=== PATIENT | male | born 1995 | race Caucasian/White ===

== ENCOUNTER → 2020-03-16 | Outpatient (CLI) | payer OTHER ==
[~2020-03-16] MED LIST: ENDOCET 5-3251 EACH PO
== END ==
LOC: KOH-I 09:45
DX: S62.002D Unspecified fracture of navicular [scaphoid] bone of left wrist, subsequent encounter for fracture with routine healing (principal); M25.832 Other specified joint disorders, left wrist; X58.XXXD Exposure to other specified factors, subsequent encounter
CPT/HCPCS: 73200

== ENCOUNTER → 2020-04-14 | Day surgery (SDC) | payer OTHER ==
[2020-04-14 10:43] LABS: HEMOGLOBIN 15.4 gm/dl (14.0-17.5); RED BLOOD COUNT 5.3 M/UL (4.20-5.50); WHITE BLOOD COUNT 6.4 K/UL (4.5-11.0)
[2020-04-14 11:16] LABS: BUN/CREATININE RATIO 19 (0-10)
== END | disposition home or self-care (01) ==
LOC: OR 10:06
PROVIDERS: Orthopaedic Surgery
PROC: 0PSN04Z Reposition Left Carpal with Internal Fixation Device, Open Approach (ICD-10-PCS; principal; 2020-04-14 15:15)
PROC: 3E0T3BZ Introduction of Anesthetic Agent into Peripheral Nerves and Plexi, Percutaneous Approach (ICD-10-PCS; principal; 2020-04-14 15:15)
PROC: 0PUN07Z Supplement Left Carpal with Autologous Tissue Substitute, Open Approach (ICD-10-PCS; principal; 2020-04-14 15:15)
DX: S62.002A Unspecified fracture of navicular [scaphoid] bone of left wrist, initial encounter for closed fracture (principal); M87.842 Other osteonecrosis, left hand; G89.18 Other acute postprocedural pain; Z20.822 Contact with and (suspected) exposure to COVID-19; W19.XXXA Unspecified fall, initial encounter; Y92.59 Other trade areas as the place of occurrence of the external cause
CPT/HCPCS: 73100; 76000; 80048; 85025; C1713; J0690; J2001; J2250; J2405; J2704; J2795; J3010; J7120